=== PATIENT | male | born 1990 | race Caucasian/White ===

== ENCOUNTER 2017-04-03 18:35 | Emergency (ER) | payer OTHER ==
[2017-04-03 18:38] VITALS: BP 108/51
[2017-04-03] MEDS ORDERED: Sodium Chloride 0.9% 1,000 ML IV SCH (19:00)
--- NOTE | 2017-04-03 19:36 | EDM.PDOC ---
ED HPI GENERAL MEDICAL PROBLEM - General Chief Complaint: Exposure to Heat or Cold Time Seen by Provider: 04/03/17 19:05 Source of Information: Reports: Patient, Family (Mother), RN Notes Reviewed History Limitations: Reports: No Limitations - History of Present Illness INITIAL COMMENTS - FREE TEXT/NARRATIVE: The patient states that he smoked some marijuana tonight, and shortly afterwards developed confusion. He believes that the marijuana was laced with "spice" - a synthetic marijuana. He states this because he had a similar reaction when he knowingly smoked spice in the past. He states that the confusion caused him to run outside. He was wearing a sweatshirt, pants, and socks. He did not have a jacket or shoes. The temperature was approximately 7 F. He states that he was outside for approximately 20 minutes, from approximately 18:45 to 19:05. The patient's roommates contacted the patient's parents, who called 911. Here in the ED, after some warming with a bear hugger, the patient states that he is completely asymptomatic, with no pain anywhere. He is lucid. He is hemodynamically stable, with a temperature of 97.0 F. The patient states that he drinks alcohol socially, but none tonight. The patient does not have a PCP. - Related Data Allergies Allergy/AdvReac Type Severity Reaction Status Date / Time No Known Allergies Allergy Verified 04/03/17 19:30 Home Meds: Home Meds Ranitidine HCl [Zantac] 150 mg PO DAILY 04/03/17 [History] Past Medical History Gastrointestinal History: Reports: GERD Social & Family History - Tobacco Use Smoking Status *Q: Current Every Day Smoker Years of Tobacco use: 7 Packs/Tins Daily: 1 - Caffeine Use Caffeine Use: Reports: Coffee, Soda - Alcohol Use Alcohol Use History: Yes Alcohol Use Frequency: Socially - Recreational Drug Use Recreational Drug Use: Yes Drug Use in Last 12 Months: Yes Recreational Drug Type: Reports: Marijuana/Hashish Recreational Drug Use Frequency: Socially - Living Situation & Occupation Living situation: Reports: Single, Other (with roommate) Occupation: Employed (Computer Engineering Technologist) ED ROS GENERAL - Review of Systems Review Of Systems: See Below Constitutional: Reports: No Symptoms HEENT: Reports: No Symptoms Respiratory: Reports: No Symptoms Cardiovascular: Reports: No Symptoms Endocrine: Reports: No Symptoms GI/Abdominal: Reports: Other (GERD symptoms) : Reports: No Symptoms Musculoskeletal: Reports: No Symptoms Skin: Reports: No Symptoms Neurological: Reports: No Symptoms Psychiatric: Reports: No Symptoms Hematologic/Lymphatic: Reports: No Symptoms Immunologic: Reports: No Symptoms ED EXAM, GENERAL - Physical Exam Exam: See Below Exam Limited By: No Limitations General Appearance: Alert, WD/WN, No Apparent Distress Eye Exam: Bilateral Eye: Normal Inspection Ears: Normal External Exam, Hearing Grossly Normal Nose: Normal Inspection, No Blood Throat/Mouth: Normal Inspection, Normal Lips, Normal Voice, No Airway Compromise Head: Atraumatic, Normocephalic Neck: Normal Inspection, Full Range of Motion Respiratory/Chest: No Respiratory Distress, Lungs Clear, Normal Breath Sounds, No Accessory Muscle Use Cardiovascular: Normal Peripheral Pulses, Regular Rate, Rhythm, No Gallop, No JVD, No Murmur, No Rub Peripheral Pulses: 4+: Radial (L), Radial (R), Posterior Tibial (L), Posterior Tibial (R), Dorsalis Pedis (L), Dorsalis Pedis (R) GI/Abdominal: Normal Bowel Sounds, Soft, Non-Tender, No Organomegaly, No Distention, No Abnormal Bruit, No Mass (Male) Exam: Deferred Rectal (Males) Exam: Deferred Back Exam: Normal Inspection, Full Range of Motion, NT Extremities: Normal Inspection, Normal Range of Motion, No Pedal Edema, Normal Capillary Refill Neurological: Alert, Oriented, Normal Cognition, No Motor/Sensory Deficits Psychiatric: Normal Affect Skin Exam: Warm, Dry, Intact, Normal Color, No Rash Course - Vital Signs Last Recorded V/S: Last Vital Signs Temp 36.1 C 04/03/17 18:37 Pulse 86 04/03/17 18:37 Resp 20 04/03/17 18:37 BP 108/51 L 04/03/17 18:37 Pulse Ox 95 04/03/17 18:37 - Orders/Labs/Meds Meds: Medications Discontinued Medications Generic Name Dose Route Start Last Admin Trade Name Freq PRN Reason Stop Dose Admin Sodium Chloride 1,000 mls @ 150 mls/hr 04/03/17 19:00 04/03/17 19:02 Normal Saline IV 150 mls/hr ASDIRECTED KAREN Administration - Re-Assessments/Exams Free Text/Narrative Re-Assessment/Exam: 04/03/17 19:32 According to both the patient and his mother, the patient was outside in the cold tonight for about 20 minutes with only a sweatshirt, pants, and socks on, however, the patient states that he was uninjured, and no injury, including evidence of frostbite, is found at this time. His physical examination and mental status appear to be normal. The patient received some warm IV fluid upon arrival to the ED, but at this time, I do not see an indication for further workup. We discussed the option of a urine drug test to see if there is any other drugs besides marijuana in his urine, but I explained that the test could easily be negative even if the patient's marijuana was laced. Further, I explained that the purpose of the urine drug screen is to evaluate patients with altered mental status, not for curiosity. Both the patient and his mother are in agreement that the patient does not need a urine drug screen. I will discharge him home. Departure - Departure Time of Disposition: 19:33 Disposition: Home, Self-Care 01 Condition: Good Clinical Impression: Exposure to environmental cold, Marijuana use - Discharge Information Instructions: Hypothermia Referrals: PCP,None [Primary Care Provider] - Forms: ED Department Discharge Additional Instructions: You were seen in the emergency room after being exposed to low temperature for about 20 minutes, after smoking possibly-laced marijuana. In the ED, your physical examination was normal, and you were not hypothermic. We recommend you reconsider your use of marijuana. If any other problems, please do not hesitate to return to the ER.
== END 2017-04-03 19:46 | disposition home or self-care (01) ==
LOC: JD.ED 18:35
DX: T69.9XXA Effect of reduced temperature, unspecified, initial encounter (principal); F12.90 Cannabis use, unspecified, uncomplicated; F17.210 Nicotine dependence, cigarettes, uncomplicated; Z79.899 Other long term (current) drug therapy
CPT/HCPCS: 96360; 99284; J7040

== ENCOUNTER 2022-03-17 16:36 | Emergency (ER) | payer MEDICAID, OTHER ==
[2022-03-17 16:52] VITALS: BP 157/96; PULSE 105
== END 2022-03-17 17:40 | disposition home or self-care (01) ==
LOC: JD.ED 16:36
DX: K08.89 Other specified disorders of teeth and supporting structures (principal); Z79.899 Other long term (current) drug therapy
CPT/HCPCS: 99282

== ENCOUNTER 2022-06-16 07:16 | Emergency (ER) | payer MEDICAID ==
[2022-06-16 07:39] VITALS: PULSE 98
[2022-06-16 08:17] LABS: ESTIMATED GFR 64 mL/min (>60)
[2022-06-16 08:20] LABS: ACETAMINOPHEN 0 ug/mL (10-30)
[2022-06-16 09:43] VITALS: BP 134/87
== END 2022-06-16 09:38 | disposition home or self-care (01) ==
LOC: JD.ED 07:16
DX: T58.01XA Toxic effect of carbon monoxide from motor vehicle exhaust, accidental (unintentional), initial encounter (principal); F17.210 Nicotine dependence, cigarettes, uncomplicated
CPT/HCPCS: 36415; 36600; 80053; 80143; 80179; 80307; 82375; 82803; 83735; 84443; 85025; 86140; 93005; 93010; 99284; 99285